=== PATIENT | male | born 1960 | race Caucasian/White ===

== ENCOUNTER 2019-10-12 10:02 | Outpatient (CLI) | payer OTHER | END 2019-10-12 10:20 | disposition home or self-care (01) | LOC: MRI 10:02 | PROVIDERS: ATTEND Orthopaedic Surgery | DX: M25.511 Pain in right shoulder (principal); M75.121 Complete rotator cuff tear or rupture of right shoulder, not specified as traumatic | CPT/HCPCS: 73218; 73221 ==